=== PATIENT | female | born 1950 | race Caucasian/White ===

== ENCOUNTER 2020-11-19 20:57 | Observation (INO) ==
[2020-11-20] MEDS ORDERED: Acetaminophen 325 MG TABLET PO PRN (02:19)
[2020-11-20] MEDS ORDERED: Ondansetron 4 MG/2 ML VIAL IVP PRN (02:19)
[2020-11-20] MEDS ORDERED: Naloxone 0.4 MG/ML INJ IVP PRN (02:19)
[2020-11-20] MEDS ORDERED: Perflutren Lipid Microsphere 1.3 ML in 0.9 % Sodium Chloride 8.7 ML IVP PRN (02:28)
[2020-11-20] MEDS ORDERED: *HR* Dextrose 50 % in Water (Syg) 50 ML SYRINGE IVP PRN (02:29)
[2020-11-20] MEDS ORDERED: Dextrose Gel 15 GM/37.5 ML TUBE PO PRN ×2 (02:29)
[2020-11-20] MEDS ORDERED: D5% in Water 1,000 ML IVC PRN (02:29)
[2020-11-20] MEDS ORDERED: *HR* Heparin 5,000 UNIT/ML VIAL IVP PRN ×2 (02:37)
[2020-11-20] MEDS ORDERED: Heparin 25,000UNIT/250ML 1/2NS 25,000 UNIT/250 ML IV.SOLN IVC SCH (02:45)
[2020-11-20 03:17] LABS: Basophils # 0.1 K/mcL (0.0-0.2); Eosinophils # 0.2 K/mcL (0.0-0.6); Eosinophils % 1.8 %; Hematocrit 36.6 % (35.3-44.9); Hemoglobin 11.7 g/dL (11.5-15.4); Immature Granulocytes % 0.3 % (0-4); Lymphocytes # 1.5 K/mcL (0.6-4.6); Lymphocytes % 16.6 %; Mean Corpuscular Hemoglobin 28.8 pg (28.0-33.3); Mean Corpuscular Volume 90.1 fL (83.0-100.0); Monocytes # 0.6 K/mcL (0.0-1.3); Monocytes % 6.3 %; Neutrophils # 6.7 K/mcL (1.6-8.9); Platelet Count 234 K/mcL (140-400); Red Blood Count 4.06 M/mcL (3.82-4.97); Red Cell Distribution Width 12.5 % (11.5-14.5)
[2020-11-20 03:19] LABS: Albumin 3.7 g/dL (3.5-5.7); Albumin/Globulin Ratio 1.2 (1.1-2.2); Bilirubin,Total 0.4 mg/dL (0.3-1.0); Calcium 9.2 mg/dL (8.6-10.3); Chol/HDL Ratio 2.2 (0-4.9); Potassium 4.1 mEq/L (3.5-5.1); Total Protein 6.7 g/dL (6.4-8.9)
[2020-11-20] MEDS: 0.9 % Sodium Chloride 1,000 ML IVC SCH (04:27)
[2020-11-20] MEDS: Insulin LISPRO 300 UNITS/3 ML VIAL SUBQ SCH ×2 (07:39→13:04)
[2020-11-20] MEDS: Furosemide 40 MG TABLET PO SCH (08:06)
[2020-11-21] MEDS: 0.9 % Sodium Chloride 1,000 ML IVC SCH (07:30)
[2020-11-21] MEDS ORDERED: Regadenoson 0.4 MG/5 ML SYRINGE IVP ONE (08:48)
[2020-11-21] MEDS: Furosemide 40 MG TABLET PO SCH (11:00)
[2020-11-21 11:56] VITALS: BP 162/80; PULSE 85; TEMP 97.4; O2SAT 94
[2020-11-22] MEDS ORDERED: Aspirin 81 MG TAB.CHEW PO SCH (09:00)
== END 2020-11-21 15:11 | disposition home or self-care (01) ==
LOC: 3BNU → SUATTDRO 11-20 00:16
PROVIDERS: ADMIT Student in an Organized Health Care Education/Training Program; ATTEND Registered Nurse